=== PATIENT | male | born 1950 | race Caucasian/White ===

== ENCOUNTER → 2021-01-01 10:08 | Outpatient (BNVA) | payer MEDICARE, SELFPAY | PROVIDERS: Family Provider Family Medicine; PCP Nurse Practitioner Family; Visit Provider Nurse Practitioner Family | DX: Z00.00 Encounter for general adult medical examination without abnormal findings (principal); I10 Essential (primary) hypertension; I49.9 Cardiac arrhythmia, unspecified; E78.5 Hyperlipidemia, unspecified; L30.0 Nummular dermatitis; Z12.5 Encounter for screening for malignant neoplasm of prostate | CPT/HCPCS: 80053; 80061; 83735; 84443; 85025; G0103 ==

== ENCOUNTER → 2021-01-22 09:41 | Outpatient (BNVA) | payer MEDICARE, SELFPAY | PROVIDERS: Family Provider Family Medicine; PCP Nurse Practitioner Family; Visit Provider Nurse Practitioner Family | DX: E87.1 Hypo-osmolality and hyponatremia (principal) | CPT/HCPCS: 80053 ==

== ENCOUNTER → 2021-06-30 12:27 | Outpatient (BNVA) | payer MEDICARE, SELFPAY | PROVIDERS: Family Provider Family Medicine; PCP Nurse Practitioner Family; Visit Provider Nurse Practitioner Family | DX: I10 Essential (primary) hypertension (principal); E78.5 Hyperlipidemia, unspecified; L30.0 Nummular dermatitis | CPT/HCPCS: 80053; 80061; 83735; 85025 ==

== ENCOUNTER → 2022-01-16 11:41 | Outpatient (BNVA) | payer MEDICARE, SELFPAY | PROVIDERS: Family Provider Family Medicine; PCP Nurse Practitioner Family; Visit Provider Nurse Practitioner Family | DX: R10.9 Unspecified abdominal pain (principal); M25.50 Pain in unspecified joint; R73.9 Hyperglycemia, unspecified; R53.83 Other fatigue; L98.9 Disorder of the skin and subcutaneous tissue, unspecified; Z12.5 Encounter for screening for malignant neoplasm of prostate; I10 Essential (primary) hypertension; E78.5 Hyperlipidemia, unspecified; Z12.11 Encounter for screening for malignant neoplasm of colon | CPT/HCPCS: 80053; 80061; 82150; 82306; 82607; 83036; 83690; 83735; 84403; 84439; 84443; 84550; 85025; 85651; 86038; 86140; 86200; 86431; G0103 ==

== ENCOUNTER 2022-02-10 11:35 | Outpatient (CLI) | payer MEDICARE, SELFPAY ==
--- NOTE | 2022-02-10 13:00 | CT_ITS ---
WS: [id number] CT ABDOMEN PELVIS TECHNIQUE: Contrast-enhanced CT of the abdomen and pelvis with coronal and sagittal reformatted image s. CLINICAL INFORMATION: R10.9 - Unspecified abdominal pain COMPARISON: CT 8 ,017 DLP: 1293.[address] scans at [facility] use at least one of these dose optimization techniques: automated e xposure control; mA and/or kV adjustment per patient size (includes targeted exams where dose is matc hed to clinical indication); or iterative reconstruction. FINDINGS: Mild diffuse fatty infiltration of the liver. Prior cholecystectomy. Small esophageal hiatal hernia. Normal spleen. Lung bases are well aerated. Pleural plaques RIGHT lower lobe. Splenic artery calcific ation. Pancreas appears normal. Normal caliber abdominal aorta. Adrenal glands are normal. No hydrone phrosis in either kidney. Small esophageal hiatal hernia. Sigmoid diverticulosis. No evidence of acute diverticulitis. Enlarged heterogeneously dense enhancing prostate measuring 5.2 x 5.9 cm prostate calcification. Indentation on the bladder with evidence of bladder outlet obstruction. Recommend correlation PSA. Mild thickenin g of the seminal vesicles. No inguinal lymphadenopathy. Heterogeneously enhancing diffuse wall thickening involving the cecum is new from 2017 and suspicious for neoplasm. Recommend further evaluation with colonoscopy. Disc space narrowing worse L5-S1 with e ndplate sclerosis. CT/CT abdomen pelvis w con* [id number] IMPRESSION: 1. Masslike thickening of the cecum is new from 2017 suspicious for neoplasm. Recommend further evaluation with colonoscopy. 2. Sigmoid diverticulosis. No evidence of acute diverticulitis. 3. Marked enlargement of prostate measuring 5.9 x 5.2 cm. Evidence of bladder outlet obstruction. Correlation PSA. 4. Prior cholecystectomy. 5. Pleural plaques RIGHT lower lobe. 6. No other acute findings.
[2022-02-10] MEDS: iohexol 300 mg/mL 100 mL Btl IV (14:20)
== END 2022-02-10 11:36 | disposition home or self-care (01) ==
PROVIDERS: PCP Nurse Practitioner Family; Visit Provider Nurse Practitioner Family
DX: R10.9 Unspecified abdominal pain (principal); M25.50 Pain in unspecified joint; K57.90 Diverticulosis of intestine, part unspecified, without perforation or abscess without bleeding; Z90.49 Acquired absence of other specified parts of digestive tract; J92.9 Pleural plaque without asbestos; N40.0 Benign prostatic hyperplasia without lower urinary tract symptoms
CPT/HCPCS: 74177

== ENCOUNTER → 2022-02-25 07:50 | Outpatient (BNVA) | payer MEDICARE, SELFPAY | PROVIDERS: PCP Nurse Practitioner Family; Referring Provider Nurse Practitioner Family; Visit Provider Surgery | DX: Z12.11 Encounter for screening for malignant neoplasm of colon (principal) | CPT/HCPCS: 99203 ==

== ENCOUNTER → 2022-03-02 16:31 | Outpatient (BNVA) | payer MEDICARE, SELFPAY | PROVIDERS: PCP Nurse Practitioner Family; Visit Provider Family Medicine | DX: N40.0 Benign prostatic hyperplasia without lower urinary tract symptoms (principal) | CPT/HCPCS: 84153 ==

== ENCOUNTER 2022-04-03 06:14 | Day surgery (SDC) | payer MEDICARE, SELFPAY ==
[2022-04-02 07:01] VITALS: BMI 32.5
[2022-04-03 06:36] VITALS: BP 142/87; PULSE 86; RESP 18; TEMP 36.1; O2SAT 98
[2022-04-03] MEDS: sodium chloride 0.9% 1,000 ML 30 ML IV (06:51)
--- NOTE | 2022-04-03 06:59 | PM.HP ---
Providers/Chief Complaint Primary Care Provider: KWAME Freire Chief Complaint: Need for screening colonoscopy History of Present Illness Justin Fine is a 72 year old male who had a positive Cologuard and needs a screening colonoscopy Review of Systems General: Reports: 10 or more systems reviewed and unremarkable except in HPI and below Medications/Allergies Home Medications Medication Instructions Recorded Confirmed Last Taken Type triamcinolone acetonide 0.1 % 1 applic TOPICAL BID 14 Days #80 g 01/16/22 04/02/22 Unknown Rx topical cream cholecalciferol (vitamin D3) 50 50 mcg PO DAILY #90 cap 01/23/22 04/02/22 Unknown Rx mcg (2,000 unit) capsule atorvastatin 20 mg tablet 20 mg PO DAILY 04/03/22 04/03/22 04/01/22 History lisinopril 20 mg tablet 20 mg PO DAILY 04/03/22 04/03/22 04/02/22 History Allergies Allergy/AdvReac Type Severity Reaction Status Date / Time No Known Allergies Allergy Verified 03/24/22 11:17 PFSH Acute PFSH: Medical History Hyperlipidemia Hypertension Surgical History History of abdominal surgery History of ankle surgery History of cholecystectomy History of colonoscopy approximately 2004 Social History Smoking and tobacco status: current some day smoker cigars Cigar details: occassional Second hand smoke exposure: No Alcohol intake: current Alcohol intake frequency: few times a month Alcohol type: wine Lives independently: Yes Household members: spouse Marital status: Current occupational status: retired History of recent travel: No Current gender identity: Male Special daron needs: No Agree to transfusion: Yes Vitals/I&O/Wt Last Vital Signs Temp 97 F L 04/03/22 06:36 Pulse 86 04/03/22 06:36 Resp 18 04/03/22 06:36 BP 142/87 04/03/22 06:36 Pulse Ox 98 04/03/22 06:36 Weight last 48 hrs Weight 240 lb Physical Exam Narrative: general : Patient is well developed , no acute distress, oriented x3 Head : Normal cephalic, a-traumatic. Ears : Pinnae and external canal are normal. Hearing is normal. Eyes : PERRLA, Sclera and injection are normal. No conjunctival discharge. Nose : Mucous membranes are without erythema. Throat : buccal mucosa is normal, gums are without significant recession or hypertrophy. Lungs : Equal chest rise bilaterally, no use of accessory muscles, trachea is midline. Cor : Rate and rhythm are normal. Abdomen : Soft, ND, NT, no g/r/m Extremities : No edema, no cyanosis or clubbing, dorsalis pedis pulses are present bilaterally, non-tender to palpation of calves. Upper extremities are normal bilaterally. Back : non-tender to palpation, no CVA tenderness. Neuro : CN II - XII intact, Upper and lower extremities have equal and full strength A&P Assessment and plan (1) Screening for colon cancer: Status: Acute Plan Colonoscopy The risks and benefits of the procedure, including bleeding, infection, intestinal perforation requiring surgery, missed lesion, or explained to the patient. He is understanding of the risks and wishes to proceed. Attestations Medical Necessity Statement*: Patient will be discharged home Coding Level of Care Code Acute Interpretive Program Coordinator for g Fwd Diagnoses Screening for colon cancer Z12.11
--- NOTE | 2022-04-03 07:37 | ANES.PREANE2 ---
Documented by User: Carlos A Ruiz Jr, PROCESS SAFETY MANAGEMENT ENGINEER 04/03/22 07:39 Pre-Anesthetic Assessment Height/Weight: Height 1.83 m Weight 108.862 kg Temp Pulse Resp BP Pulse Ox 97 F L 86 18 142/87 98 04/03/22 06:36 04/03/22 06:36 04/03/22 06:36 04/03/22 06:36 04/03/22 06:36 Preop Diagnosis: Positive Cologuard Operation Date: 04/03/22 07:30 Proposed Procedures p Colonoscopy 17170,Z12.11(Not Applicable) - Alan Galicia, DO Was Beta Refugio taken within 24 hours: N/A Was Clonidine taken within 24 hours: N/A Last intake: Intake Last Liquid Date 04/03/22 Last Liquid Time 01:00 Last Solid Date 04/01/22 Last Solid Time 18:00 Social Alcohol and Tobacco Exam alert, oriented x 3, clear to auscultation bilaterally and regular rate & rhythm Airway Submandibular: within normal limits Cervical ROM: within normal limits Mallampati: Class II Dentition: full History/ROS No significant history except as noted and No significant complaints Pulmonary None reported CV/HEM Hypertension None reported Hepatic None reported GI None reported Metabolic None reported Musc/skel None reported Neuropsych None reported Anesthetic Plan ASA status: 2 Anesthesia: Anesthesia Evaluation and MAC Risk of > 500 ml blood loss (7ml/kg in children): No Medications/Allergies Home Medications Medication Instructions Recorded Confirmed Last Taken Type triamcinolone acetonide 0.1 % 1 applic TOPICAL BID 14 Days #80 g 01/16/22 04/02/22 Unknown Rx topical cream cholecalciferol (vitamin D3) 50 50 mcg PO DAILY #90 cap 01/23/22 04/02/22 Unknown Rx mcg (2,000 unit) capsule atorvastatin 20 mg tablet 20 mg PO DAILY 04/03/22 04/03/22 04/01/22 History lisinopril 20 mg tablet 20 mg PO DAILY 04/03/22 04/03/22 04/02/22 History Allergies Allergy/AdvReac Type Severity Reaction Status Date / Time No Known Allergies Allergy Verified 03/24/22 11:17 Current Medications Generic Name Dose Route Start Last Admin Trade Name Freq PRN Reason Stop Dose Admin Sodium Chloride 1,000 mls @ 30 mls/hr 04/03/22 06:30 04/03/22 06:51 Sodium Chloride 0.9% IV 04/04/22 06:29 30 mls/hr .Q24H EVELINA Administration PFSH Anesthesia Medical History Hyperlipidemia Hypertension Surgical History History of abdominal surgery History of ankle surgery History of cholecystectomy History of colonoscopy approximately 2004 Social History Smoking and tobacco status: current some day smoker cigars Cigar details: occassional Second hand smoke exposure: No Alcohol intake: current Alcohol intake frequency: few times a month Alcohol type: wine Lives independently: Yes Household members: spouse Marital status: Current occupational status: retired History of recent travel: No Current gender identity: Male Special daron needs: No Agree to transfusion: Yes Data Anesthesia Cardiac Studies: No Data to Display
[2022-04-03 08:11] VITALS: BP 136/83; PULSE 20; RESP 20; TEMP 36.1; O2SAT 95
[2022-04-03 08:23] VITALS: BP 154/90; PULSE 80; RESP 18; O2SAT 96
--- NOTE | 2022-04-03 13:54 | ANE.PACU2 ---
Inpatient post-anesthesia follow up: Airway intact: Yes Vital signs: Temperature 97 F Pulse Rate 80 Respiratory Rate 18 Blood Pressure 154/90 Pulse Oximetry 96 Oxygen Delivery Me thod Room Air Oxygen Flow Rate 3 Fraction of Inspir ed Oxygen Hydration adequate: Yes Nausea and vomiting: No Pain level: 1 Mental status: Baseline
== END 2022-04-03 08:39 | disposition home or self-care (01) ==
PROVIDERS: PCP Nurse Practitioner Family; Visit Provider Surgery
PROC: 0DJD8ZZ Inspection of Lower Intestinal Tract, Via Natural or Artificial Opening Endoscopic (ICD-10-PCS; CPT 45378; principal; 2022-04-03 07:30)
DX: Z12.11 Encounter for screening for malignant neoplasm of colon (principal); E78.5 Hyperlipidemia, unspecified; I10 Essential (primary) hypertension; F17.290 Nicotine dependence, other tobacco product, uncomplicated; D12.2 Benign neoplasm of ascending colon; D12.4 Benign neoplasm of descending colon; D12.5 Benign neoplasm of sigmoid colon
CPT/HCPCS: 45385; 88305; J2704; J7030

== ENCOUNTER → 2022-04-08 11:15 | Outpatient (BNVA) | payer MEDICARE, SELFPAY | PROVIDERS: PCP Nurse Practitioner Family; Visit Provider Nurse Practitioner Family | DX: R10.9 Unspecified abdominal pain (principal) | CPT/HCPCS: 74018 ==

== ENCOUNTER → 2022-04-14 11:16 | Outpatient (BNVA) | payer MEDICARE, SELFPAY | PROVIDERS: PCP Nurse Practitioner Family; Visit Provider Nurse Practitioner Family | DX: R10.9 Unspecified abdominal pain (principal); R93.5 Abnormal findings on diagnostic imaging of other abdominal regions, including retroperitoneum; K44.9 Diaphragmatic hernia without obstruction or gangrene; R07.81 Pleurodynia; R10.812 Left upper quadrant abdominal tenderness; R53.83 Other fatigue | CPT/HCPCS: 87338 ==

== ENCOUNTER → 2022-04-16 15:45 | Outpatient (BNVA) | payer MEDICARE, SELFPAY | PROVIDERS: PCP Nurse Practitioner Family; Visit Provider Surgery | DX: Z09 Encounter for follow-up examination after completed treatment for conditions other than malignant neoplasm (principal); D36.9 Benign neoplasm, unspecified site | CPT/HCPCS: 99212 ==

== ENCOUNTER → 2023-03-19 09:55 | Outpatient (BNVA) | payer MEDICARE, SELFPAY | PROVIDERS: PCP Nurse Practitioner Family; Visit Provider Nurse Practitioner Family | DX: Z12.5 Encounter for screening for malignant neoplasm of prostate (principal); K76.0 Fatty (change of) liver, not elsewhere classified; R73.9 Hyperglycemia, unspecified; L30.0 Nummular dermatitis | CPT/HCPCS: 80053; 80061; 83036; 85025; G0103 ==

== ENCOUNTER → 2023-03-29 15:15 | Outpatient (BNVA) | payer MEDICARE, SELFPAY | PROVIDERS: PCP Nurse Practitioner Family; Visit Provider Podiatrist Foot & Ankle Surgery | DX: M21.621 Bunionette of right foot (principal); L84 Corns and callosities | CPT/HCPCS: 73630; 99204 ==

== ENCOUNTER → 2023-04-27 10:51 | Outpatient (BNVA) | payer MEDICARE, SELFPAY | PROVIDERS: PCP Nurse Practitioner Family; Visit Provider Podiatrist Foot & Ankle Surgery | DX: M21.621 Bunionette of right foot (principal); L84 Corns and callosities | CPT/HCPCS: 80053; 99213 ==

== ENCOUNTER → 2023-06-29 11:14 | Outpatient (BNVA) | payer MEDICARE, SELFPAY | PROVIDERS: PCP Nurse Practitioner Family; Visit Provider Podiatrist Foot & Ankle Surgery | DX: L84 Corns and callosities; Z46.89 Encounter for fitting and adjustment of other specified devices; M79.671 Pain in right foot | CPT/HCPCS: 97760; 99213; L3030 ==

== ENCOUNTER 2023-06-29 13:48 | Outpatient (CLI) | payer MEDICARE, SELFPAY | END 2023-06-29 13:49 | disposition home or self-care (01) | LOC: SPT 13:48 | PROVIDERS: PCP Nurse Practitioner Family; Visit Provider Podiatrist Foot & Ankle Surgery | DX: Z46.89 Encounter for fitting and adjustment of other specified devices (principal); M79.671 Pain in right foot | CPT/HCPCS: 97760; L3030 ==

== ENCOUNTER → 2023-12-23 11:45 | Outpatient (BNVA) | payer MEDICARE, SELFPAY | PROVIDERS: PCP Nurse Practitioner Family; Visit Provider Nurse Practitioner Family | DX: N50.811 Right testicular pain (principal); Z12.5 Encounter for screening for malignant neoplasm of prostate; I10 Essential (primary) hypertension; R73.9 Hyperglycemia, unspecified | CPT/HCPCS: 80053; 80061; 83036; 85025; G0103 ==

== ENCOUNTER 2023-12-28 11:47 | Outpatient (CLI) | payer MEDICARE, SELFPAY ==
--- NOTE | 2023-12-28 12:15 | US_ITS ---
WS: [id number] TESTICULAR ULTRASOUND HISTORY: N50.811 - Right testicular pain COMPARISON: None available. TECHNIQUE: Real-time and color Doppler imaging or utilized to perform a testicular ultrasound. Right testicle: 4.1 cm x 3.0 cm x 2.7 cm. Normal size and echogenicity. No mass or torsion. Normal color Doppler is present throughout. Systolic and diastolic velocities are both present. Moderate to large, simple circumferential hydrocele. Right epididymis: Normal epididymis with no increased vascularity. Left testicle: 4.0 cm x 2.6 cm x 2.2 cm. Normal size and echogenicity. No mass or torsion. Normal color Doppler is present throughout. Systolic and diastolic velocities are both present. Small simple hydrocele. Left epididymis: Normal epididymis with no increased vascularity. IMPRESSION: 1. No testicular mass or torsion. 2. No evidence for orchitis or epididymitis. 3. Moderate to large simple RIGHT hydrocele and a small LEFT hydrocele.
== END 2023-12-28 11:48 | disposition home or self-care (01) ==
LOC: RAD 11:48
PROVIDERS: PCP Nurse Practitioner Family; Visit Provider Nurse Practitioner Family
DX: N50.811 Right testicular pain (principal); N43.3 Hydrocele, unspecified
CPT/HCPCS: 76870

== ENCOUNTER → 2024-04-26 09:45 | Outpatient (BNVA) | payer MEDICARE, SELFPAY | PROVIDERS: PCP Nurse Practitioner Family; Visit Provider Nurse Practitioner Family | DX: R10.30 Lower abdominal pain, unspecified (principal) | CPT/HCPCS: 80053; 81000; 85025 ==

== ENCOUNTER 2024-05-08 10:45 | Outpatient (CLI) | payer MEDICARE, SELFPAY ==
--- NOTE | 2024-05-08 11:00 | CTR_ITS ---
PROCEDURE INFORMATION: Exam: CT Abdomen And Pelvis With Contrast Exam date and time: 05/08/2024 11:53 AM Age: 74 years old Clinical indication: Abdominal pain; Localized; Prior surgery; Surgery date: 6+ months; Surgery type: Gb; Patient HX: Lower and discomfort- PT states it feels like its coming from rectal area. ; Additional info: R10.30 - lower abdominal pain, unspecified TECHNIQUE: Imaging protocol: Computed tomography of the abdomen and pelvis with contrast. Radiation optimization: All CT scans at this facility use at least one of these dose optimization techniques: automated exposure control; mA and/or kV adjustment per patient size (includes targeted exams where dose is matched to clinical indication); or iterative reconstruction. Contrast material: OMNI 350; Contrast volume: 100 ml; Contrast route: INTRAVENOUS (IV); COMPARISON: CT abdomen pelvis w con* [id number] 02/10/2022 1:40 PM RADIATION DOSE METRICS: Total DLP (mGy-cm): 765.26 FINDINGS: Lungs: There is subsegmental atelectasis in the right lower lobe. Pleural spaces: There is right posterior lower costal pleural thickening and calcification. Liver: The liver is normal. Gallbladder and biliary ducts: The gallbladder is absent. There is no intrahepatic or extrahepatic bile duct dilation. Pancreas: There is mild atrophy of the pancreas. Spleen: The spleen is unremarkable. Adrenal glands: The adrenal glands are unremarkable. Kidneys and ureters: The kidneys are unremarkable. No hydronephrosis or stones. No ureteral dilation. Stomach and bowel: The stomach is nondistended, limiting assessment of wall thickness. The small bowel is nondilated. There is mild diverticulosis of the descending and proximal sigmoid colon. There is a short segment of circumferential mucosal thickening and associated pericolonic edema involving the mid to distal sigmoid. There is no extraluminal gas. There is no intramural or extramural fluid collection although there is a 17 x 11 mm irregular focus of intermediate density adjacent to the colon suggesting trace blood. No definite inflamed diverticulum is seen. No colonic mass is seen. There is no sign of colonic obstruction. Appendix: The appendix is normal. Intraperitoneal space: There is no free air or significant intraperitoneal free fluid. Vasculature: There is mild aortic atherosclerotic disease. The portal, splenic and superior mesenteric veins are patent. Lymph nodes: There is no lymphadenopathy in the retroperitoneum, mesentery, pelvis or inguinal regions. Urinary bladder: The urinary bladder is unremarkable. Reproductive: There is nonspecific moderate enlargement of the prostate gland. Bones/joints: There is moderate degenerative disease in the lumbar spine. Soft tissues: The abdominal wall is intact. There is an intact right inguinal hernia repair. CT/CT abdomen pelvis w con* [id number] IMPRESSION: 1. Focal colonic mucosal thickening and pericolonic edema involving the distal descending colon. Etiology is uncertain. Multiple diverticula are seen just proximal to the region of inflammation, but none are clearly inflamed. Findings may represent uncomplicated diverticulitis or focal inflammatory/infectious colitis. Underlying neoplasm is not unequivocally excluded but no discrete mass is seen. Consider follow-up nonemergent sigmoidoscopy. 2. Incidental findings above.
[2024-05-08] MEDS: iohexol 350 mg/mL 500 mL Btl (per mL) PO (11:19)
[2024-05-08] MEDS: iohexol 350 mg/mL 500 mL Btl (per mL) IV (13:07)
== END 2024-05-08 10:46 | disposition home or self-care (01) ==
LOC: RAD 10:46
PROVIDERS: PCP Nurse Practitioner Family; Visit Provider Nurse Practitioner Family
DX: K56.690 Other partial intestinal obstruction (principal); J98.11 Atelectasis; J92.9 Pleural plaque without asbestos; Z90.49 Acquired absence of other specified parts of digestive tract; M51.36 Other intervertebral disc degeneration, lumbar region; R10.30 Lower abdominal pain, unspecified
CPT/HCPCS: 74177; 80053; 81000; 85025; Q9967

== ENCOUNTER → 2024-06-01 09:56 | Outpatient (BNVA) | payer MEDICARE, SELFPAY | PROVIDERS: PCP Nurse Practitioner Family; Visit Provider Surgery | DX: K57.92 Diverticulitis of intestine, part unspecified, without perforation or abscess without bleeding (principal) | CPT/HCPCS: 99214 ==

== ENCOUNTER 2024-08-02 07:13 | Day surgery (SDC) | payer MEDICARE, SELFPAY ==
[2024-08-02 07:23] VITALS: BP 143/95; PULSE 88; RESP 16; TEMP 36.6; O2SAT 98; BMI 29.8
[2024-08-02] MEDS: sodium chloride 0.9% 1,000 ML 30 ML IV (07:40)
--- NOTE | 2024-08-02 08:23 | ANES.PREANE2 ---
Pre-Anesthetic Assessment Height/Weight: Height 1.83 m Weight 99.79 kg Temp Pulse Resp BP Pulse Ox O2 Del Method 97.8 F 88 16 143/95 98 Room Air 08/02/24 07:23 08/02/24 07:23 08/02/24 07:23 08/02/24 07:23 08/02/24 07:23 08/02/24 07:23 Preop Diagnosis: screening Operation Date: 08/02/24 08:30 Proposed Procedures p Colonoscopy 70792, G0105, K57.92(Not Applicable) - Alan Galicia DO Familial anesthetic complications: none Was Beta Refugio taken within 24 hours: N/A Was Clonidine taken within 24 hours: N/A Last intake: Intake Last Liquid Date 08/01/24 Last Liquid Time 20:00 Last Solid Date 07/31/24 Last Solid Time 17:00 Social Alcohol and Tobacco occassional beer and cigars Exam alert, oriented x 3, clear to auscultation bilaterally and regular rate & rhythm Airway Submandibular: within normal limits Cervical ROM: within normal limits Mallampati: Class II Dentition: full Comments: Comments: missing few lowers History/ROS No significant history except as noted and No significant complaints Pulmonary None reported CV/HEM Hypertension None reported Hepatic None reported GI Hiatal Hernia Metabolic None reported Neuropsych None reported Anesthetic Plan ASA status: 2 Anesthesia: MAC Risk of > 500 ml blood loss (7ml/kg in children): No Medications/Allergies Home Medications Medication Instructions Recorded Confirmed Last Taken Type custom orthotics #1 ea 04/27/23 08/01/24 08/01/24 Rx atorvastatin 20 mg tablet See Rx Instructions .Route 12/23/23 08/01/24 08/01/24 Rx .COMPLEX #90 tabs lisinopril 20 mg tablet See Rx Instructions .Route 12/23/23 08/01/24 08/01/24 Rx .COMPLEX #90 tabs Allergies Allergy/AdvReac Type Severity Reaction Status Date / Time No Known Allergies Allergy Verified 06/01/24 10:08 Current Medications Generic Name Dose Route Start Last Admin Trade Name Freq PRN Reason Stop Dose Admin Sodium Chloride 1,000 mls @ 30 mls/hr 08/02/24 07:30 08/02/24 07:40 Sodium Chloride 0.9% IV 08/03/24 07:29 30 mls/hr .Q24H EVELINA Administration PFSH Anesthesia Medical History Tubular adenoma Hyperlipidemia Hypertension Surgical History History of abdominal surgery History of colonoscopy last performed 03/2022, [facility], recheck in 03/2025 History of ankle surgery History of cholecystectomy Social History Smoking and tobacco/nicotine status: current some day tobacco/nicotine user cigars Cigar details: occassional Second hand smoke exposure: No Alcohol intake: current Alcohol intake frequency: few times a month Alcohol type: wine Substance/Drug Use: never Lives independently: Yes Household members: spouse Marital status: Current occupational status: retired Current gender identity: Male Special daron needs: No Agree to transfusion: Yes Data Anesthesia Cardiac Studies: No Data to Display
--- NOTE | 2024-08-02 08:59 | PM.HP ---
Providers/Chief Complaint Primary Care Provider: KWAME Freire Chief Complaint: K57.92 History of Present Illness Justin Fine is a 74 year old male Review of Systems General: Reports: 10 or more systems reviewed and unremarkable except in HPI and below Medications/Allergies Home Medications Medication Instructions Recorded Confirmed Last Taken Type custom orthotics #1 ea 04/27/23 08/01/24 08/01/24 Rx atorvastatin 20 mg tablet See Rx Instructions .Route 12/23/23 08/01/24 08/01/24 Rx .COMPLEX #90 tabs lisinopril 20 mg tablet See Rx Instructions .Route 12/23/23 08/01/24 08/01/24 Rx .COMPLEX #90 tabs Allergies Allergy/AdvReac Type Severity Reaction Status Date / Time No Known Allergies Allergy Verified 06/01/24 10:08 PFSH Acute PFSH: Medical History Tubular adenoma Hyperlipidemia Hypertension Surgical History History of abdominal surgery History of colonoscopy last performed 03/2022, [facility], recheck in 03/2025 History of ankle surgery History of cholecystectomy Social History Smoking and tobacco/nicotine status: current some day tobacco/nicotine user cigars Cigar details: occassional Second hand smoke exposure: No Alcohol intake: current Alcohol intake frequency: few times a month Alcohol type: wine Substance/Drug Use: never Lives independently: Yes Household members: spouse Marital status: Current occupational status: retired Current gender identity: Male Special daron needs: No Agree to transfusion: Yes Vitals/I&O/Wt Last Vital Signs Temp 97.8 F 08/02/24 07:23 Pulse 88 08/02/24 07:23 Resp 16 08/02/24 07:23 BP 143/95 08/02/24 07:23 Pulse Ox 98 08/02/24 07:23 O2 Del Method Room Air 08/02/24 07:23 Weight last 48 hrs Weight 220 lb A&P Assessment and plan (1) History of diverticulitis: (2) History of colon polyps: Plan Colonoscopy Attestations Medical Necessity Statement*: Home Coding Level of Care Code Acute Code for Chg Fwd Diagnoses History of diverticulitis Z87.19 History of colon polyps Z86.0100
[2024-08-02 09:42] VITALS: BP 146/89; PULSE 85; RESP 18; TEMP 36.5; O2SAT 97
[2024-08-02 10:05] VITALS: BP 155/90; PULSE 90; RESP 16; O2SAT 98
--- NOTE | 2024-08-02 10:32 | ANE.PACU2 ---
Inpatient post-anesthesia follow up: Airway intact: Yes Vital signs: Temperature 97.7 F Pulse Rate 90 Respiratory Rate 16 Blood Pressure 155/90 Pulse Oximetry 98 Oxygen Delivery Me thod Room Air Oxygen Flow Rate Fraction of Inspir ed Oxygen Hydration adequate: Yes Nausea and vomiting: No Pain level: 1 Mental status: Baseline
== END 2024-08-02 10:32 | disposition home or self-care (01) ==
PROVIDERS: PCP Nurse Practitioner Family; Visit Provider Surgery
PROC: 0DJD8ZZ Inspection of Lower Intestinal Tract, Via Natural or Artificial Opening Endoscopic (ICD-10-PCS; CPT 45378; principal; 2024-08-02 08:30)
DX: D12.2 Benign neoplasm of ascending colon (principal); D12.0 Benign neoplasm of cecum; D12.5 Benign neoplasm of sigmoid colon; D12.3 Benign neoplasm of transverse colon; E78.5 Hyperlipidemia, unspecified; I10 Essential (primary) hypertension; F17.200 Nicotine dependence, unspecified, uncomplicated; Z86.0100 Personal history of colon polyps, unspecified
CPT/HCPCS: 45385; 88305; J2704; J7030

== ENCOUNTER → 2024-08-08 13:41 | Outpatient (BNVA) | payer MEDICARE, SELFPAY | PROVIDERS: PCP Nurse Practitioner Family; Visit Provider Surgery | DX: D37.4 Neoplasm of uncertain behavior of colon (principal) | CPT/HCPCS: 99214 ==

== ENCOUNTER → 2025-04-03 11:12 | Outpatient (BNVA) | payer MEDICARE, SELFPAY | PROVIDERS: PCP Nurse Practitioner Family; Visit Provider Nurse Practitioner Family | DX: M17.12 Unilateral primary osteoarthritis, left knee (principal); M25.561 Pain in right knee; I10 Essential (primary) hypertension; E78.5 Hyperlipidemia, unspecified; R73.9 Hyperglycemia, unspecified; Z12.5 Encounter for screening for malignant neoplasm of prostate | CPT/HCPCS: 73562; 80053; 80061; 83036; 84443; 85025; G0103 ==

== ENCOUNTER → 2025-07-06 09:39 | Outpatient (BNVA) | payer MEDICARE, SELFPAY | PROVIDERS: PCP Nurse Practitioner Family; Visit Provider Emergency Medicine | DX: R39.9 Unspecified symptoms and signs involving the genitourinary system (principal); R82.90 Unspecified abnormal findings in urine | CPT/HCPCS: 81000; 87086 ==